=== PATIENT | male | born 1965 | race Caucasian/White ===

== ENCOUNTER 2019-12-31 15:03 | Inpatient (IN) | payer OTHER ==
[~2019-12-31] VITALS: Ht 190.5 cm; Wt 101.8 kg
--- NOTE | 2019-12-31 15:36 | NUR ---
THIS IS A 54 YO M W/ C/O INTERMITTENT RACING HEARTX3 DAYS, EXERTIONAL DYSPNEA, DIAPHORESIS AND COUGH DUE TO SEASONAL ALLERGIES. PT PRESENTED TACHYPNEIC AND TACHYCARDIC AT 205. CONVERTED PT TO 105 AFTER VALSALVA MANUEVERS. OTHER VS WDL. PT IS RESTING ON [employer] W/ CALL LIGHT IN REACH. PIV STARTED AND LABS DRAWN. NAVARRO RILEY AT BEDSIDE. AWAITING ORDERS.
--- NOTE | 2019-12-31 15:50 | NUR ---
RAD IN ROOM.
--- NOTE | 2019-12-31 16:02 | NUR ---
PT PROVIDED URINAL FOR URINE SAMPLE. PT STATES HE IS UNABLE TO PROVIDE AT THIS TIME.
[2019-12-31 16:07] LABS: BASOPHILS # (AUTO) 0.02 x10^3/uL (0-0.1); BASOPHILS % (AUTO) 0 % (0-1); EOSINOPHILS # (AUTO) 0.47 x10^3/uL (0-0.4); EOSINOPHILS % (AUTO) 5 % (1-7); LYMPHOCYTES # (AUTO) 1.87 x10^3/uL (1-3.4); LYMPHOCYTES % (AUTO) 18 % (22-44); MD NO; MEAN CORPUSCULAR HEMOGLOBIN 30.8 pg (27.5-34.5); MEAN CORPUSCULAR HGB CONC 33.2 g/dL (33.2-36.2); MEAN CORPUSCULAR VOLUME 92.8 fL (81-97); MEAN PLATELET VOLUME 8.9 fL (7.4-10.4); MONOCYTES # (AUTO) 0.84 x10^3/uL (0.2-0.8); MONOCYTES % (AUTO) 8 % (2-9); NEUTROPHILS # (AUTO) 6.99 x10^3/uL (1.8-6.8); NEUTROPHILS % (AUTO) 69 % (42-75); PLATELET COUNT 344 x10^3/uL (130-400); RED BLOOD COUNT 5.15 x10^6/uL (4.38-5.82); RED CELL DISTRIBUTION WIDTH 12.7 % (9.4-14.8)
[2019-12-31 16:10] LABS: ALANINE AMINOTRANSFERASE 75 U/L (12-78); ALBUMIN 2.8 g/dL (3.4-5.0); ANION GAP 14 mmol/L (5-15); CHLORIDE 100 mmol/L (98-107); CREATININE 1.61 mg/dL (0.7-1.3)
[2019-12-31 16:14] LABS: ALKALINE PHOSPHATASE 146 U/L (45-117); BILIRUBIN,TOTAL 0.6 mg/dL (0.2-1.0); TOTAL PROTEIN 7.7 g/dL (6.4-8.2); TROPONIN I < 0.015 ng/mL (0.000-0.045)
[2019-12-31] MEDS ORDERED: CEFTRIAXONE PMX 1GM/50ML 50 ML ONE (16:19)
[2019-12-31] MEDS: SODIUM CHLORIDE 0.9% 1,000 ML IV ONE ×2 (16:30→17:19)
[2019-12-31] MEDS ORDERED: CEFTRIAXONE PMX 1GM/50ML 50 ML IV ONE (16:30)
[2019-12-31] MEDS ORDERED: PLEASE ENTER ALLERGIES MC SCH (16:30)
[2019-12-31] MEDS ORDERED: SODIUM CHLORIDE 0.9% 1,000ML IVBOLUS ONE (16:30)
[2019-12-31] MEDS ORDERED: SODIUM CHLORIDE FLUSH 10ML SYR IVF ONE (16:30)
--- NOTE | 2019-12-31 16:33 | NUR ---
1L NS BOLUS STARTED. ROCEPHIN STARTED. VS UPDATED. PT IS NOW ON 4L O2 NC TO KEEP ABOVE >90%.
--- NOTE | 2019-12-31 16:46 | NUR ---
ENEDINA LANDEROS FROM PHARMACY.
--- NOTE | 2019-12-31 16:46 | NUR ---
ADMITTING PROVIDER AT BEDSIDE.
[2019-12-31 16:54] LABS: AMPHETAMINE SCREEN, URINE Negative (Negative); BARBITURATE SCREEN, URINE Negative (Negative); BENZODIAZEPINE SCREEN, URINE Negative (Negative); CANNABINOID SCREEN, URINE Negative (Negative); COCAINE SCREEN, URINE Negative (Negative); METHADONE SCREEN, URINE Negative (Negative); OPIATE SCREEN, URINE Negative (Negative)
[2019-12-31] MEDS ORDERED: AZITHROMYCIN 500 MG in SODIUM CHLORIDE 0.9% 250 ML IV ONE (17:00)
[2019-12-31] MEDS: AZITHROMYCIN 500 MG in SODIUM CHLORIDE 0.9% 250 ML IV SCH (17:20)
[2019-12-31] MEDS: CEFTRIAXONE PMX 1GM/50ML 50 ML IV SCH (17:20)
[2019-12-31] MEDS ORDERED: POTASSIUM CHLORIDE 20 MEQ TAB.ER.PRT ONE (17:22)
--- NOTE | 2019-12-31 17:24 | NUR ---
MED TIGRE FROM PHARMACY.
[2019-12-31] MEDS ORDERED: POTASSIUM CHLORIDE 20 MEQ TAB.ER.PRT PO ONE (17:30)
[2019-12-31] MEDS ORDERED: ONDANSETRON ODT 4 MG PO PRN (17:30)
[2019-12-31] MEDS ORDERED: GUAIFENESIN/DM 200-20MG, 10ML UDC PO PRN (17:30)
[2019-12-31] MEDS ORDERED: LABETALOL 5MG/ML, 20ML IVPush PRN (17:30)
[2019-12-31] MEDS ORDERED: METOCLOPRAMIDE 5 MG/ML, 2ML IVPush PRN (17:30)
[2019-12-31] MEDS ORDERED: POLYETHYLENE GLYCOL 17 GM PACKET PO PRN (17:30)
[2019-12-31] MEDS ORDERED: hydrALAzine 20 MG/ML, 1ML IVPush PRN (17:30)
[2019-12-31] MEDS ORDERED: LIDODERM 5% PATCH TD PRN (17:30)
[2019-12-31] MEDS: ENOXAPARIN 40 MG/0.4 ML SQ SCH (17:30)
[2019-12-31] MEDS ORDERED: DOCUSATE 100 MG CAPSULE PO PRN (17:30)
[2019-12-31] MEDS ORDERED: ACETAMINOPHEN 325 MG TABLET PO PRN (17:30)
--- NOTE | 2019-12-31 17:41 | NUR ---
PT PROVIDED WATER. GIVEN INCENTIVE SPIROMETER AND EDUCATED ON USE. MEDICATED PER EMAR. PT RESTING ON [facility] W/ CALL LIGHT IN REACH. DENIES FURTHER NEEDS AT THIS TIME.
[2019-12-31 17:49] LABS: FREE T4 (FREE THYROXINE) 1.22 ng/dL (0.76-1.46)
--- NOTE | 2019-12-31 18:15 | NUR ---
ED DIET TRAY ORDERED.
[2019-12-31 18:16] LABS: MICROSCOPIC INDICATED
[2019-12-31 18:31] LABS: CULTURE INDICATED? NO
--- NOTE | 2019-12-31 21:00 | NUR ---
PT RESTING ON GURNEY, WATCHING TV. PROVIDED BLANKET AND URINAL. VS STABLE. DENIES FURTHER NEEDS AT THIS TIME.
[2019-12-31 21:34] LABS: CHLORIDE,URINE RANDOM 41 mmol/L; POTASSIUM,URINE RANDOM 31 mmol/L; SODIUM,URINE RANDOM 43 mmol/L
[2019-12-31] MEDS: SODIUM CHLORIDE 0.9% 1,000 ML IV SCH (22:32)
--- NOTE | 2019-12-31 22:36 | NUR ---
PT RESTING ON [employer] W/ CALL LIGHT IN REACH AND SIDE RAILS UP X2. PROVIDED WATER UPON REQUEST. DENIES FURTHER NEEDS AT THIS TIME.
[2020-01-01] MEDS: SODIUM CHLORIDE 0.9% 1,000 ML IV SCH (01:03)
--- NOTE | 2020-01-01 01:10 | NUR ---
PT DESAT TO 89% WHILE SLEEPING. BUMPED UP TO 4L TO MAINTAIN SAT >90%.
--- NOTE | 2020-01-01 01:59 | NUR ---
REPORT GIVEN TO HERIBERTO RUELAS.
[2020-01-01 05:11] LABS: ALANINE AMINOTRANSFERASE 49 U/L (12-78); ANION GAP 5 mmol/L (5-15); CALCIUM 7.7 mg/dL (8.5-10.1); CHLORIDE 110 mmol/L (98-107)
[2020-01-01 05:14] LABS: ALKALINE PHOSPHATASE 97 U/L (45-117); BASOPHILS # (AUTO) 0.03 x10^3/uL (0-0.1); BASOPHILS % (AUTO) 1 % (0-1); BILIRUBIN,TOTAL 0.4 mg/dL (0.2-1.0); EOSINOPHILS # (AUTO) 0.44 x10^3/uL (0-0.4); EOSINOPHILS % (AUTO) 7 % (1-7); LYMPHOCYTES # (AUTO) 1.11 x10^3/uL (1-3.4); LYMPHOCYTES % (AUTO) 17 % (22-44); MD NO; MEAN CORPUSCULAR HEMOGLOBIN 31.1 pg (27.5-34.5); MEAN CORPUSCULAR HGB CONC 33.8 g/dL (33.2-36.2); MEAN CORPUSCULAR VOLUME 91.8 fL (81-97); MEAN PLATELET VOLUME 7.9 fL (7.4-10.4); MONOCYTES # (AUTO) 0.61 x10^3/uL (0.2-0.8); MONOCYTES % (AUTO) 10 % (2-9); NEUTROPHILS # (AUTO) 4.23 x10^3/uL (1.8-6.8); NEUTROPHILS % (AUTO) 66 % (42-75); PLATELET COUNT 323 x10^3/uL (130-400); RED BLOOD COUNT 4.06 x10^6/uL (4.38-5.82); RED CELL DISTRIBUTION WIDTH 12.5 % (9.4-14.8); TOTAL PROTEIN 5.5 g/dL (6.4-8.2)
[2020-01-01 06:01] VITALS: BP 108/68
[2020-01-01 16:15] VITALS: BP 113/72
[2020-01-01] MEDS: CEFTRIAXONE PMX 1GM/50ML 50 ML IV SCH (18:10)
[2020-01-01] MEDS: ENOXAPARIN 40 MG/0.4 ML SQ SCH (18:10)
[2020-01-01 20:00] VITALS: BP 125/72
[2020-01-01] MEDS: AZITHROMYCIN 500 MG in SODIUM CHLORIDE 0.9% 250 ML IV SCH (20:54)
[2020-01-02 02:00] VITALS: BP 111/64
[2020-01-02 08:00] VITALS: BP 102/62
[2020-01-02 14:00] VITALS: BP 104/60
[2020-01-02 14:01] VITALS: BP 104/60
[2020-01-02] MEDS ORDERED: CEFD300C37 PO (14:13)
[2020-01-02] MEDS ORDERED: AZIT500T10 PO (14:13)
== END 2020-01-02 14:00 | disposition home or self-care (01) | DRG 682 ==
LOC: ED 15:52 → EDIP 16:39 → 3WST 01-01 05:46
PROVIDERS: ADMIT Internal Medicine; ATTEND Hospitalist
DX: N17.9 Acute kidney failure, unspecified (principal); J15.9 Unspecified bacterial pneumonia; I47.1 Supraventricular tachycardia; Z87.891 Personal history of nicotine dependence; Z20.828 Contact with and (suspected) exposure to other viral communicable diseases
CPT/HCPCS: 36415; 71045; 80053; 80307; 81001; 82436; 82550; 83605; 83615; 83735; 84100; 84133; 84145; 84300; 84439; 84443; 84484; 85025; 87040; 87205; 93005; 99285; G0378; J0456; J0696; J1650; J7030; J7050